=== PATIENT | female | born 1980 | race Caucasian/White ===

== ENCOUNTER 2022-08-26 19:24 | Emergency (ER) | payer SELFPAY ==
[~2022-08-26] VITALS: Ht 170.2 cm; Wt 86.2 kg
[~2022-08-26 19:24] MED LIST: ALBUTEROL S5 MG/1 ML NEB; ALBUTEROL SULF8.5 GM INH; ALBUTEROL2.5 MG/3 M INH; ATROVENT30 ML NAS; BENZONATATE200 MG PO; COLACE100 MG PO; COMBIVENT INH14.7 GM INH; FLONASE2 SPRAY; HYDROCODON-ACE1 EAC3 PO; IBUPROFEN200 MG PO; IPRATROPIU0.2 MG/1 M IH; MEDROL4 MG PO; NORCO 5-325 TA1 EACH PO; OMEPRAZOLE40 MG PO; PERCOCET 5-3251 EACH PO; PREDNISONE20 MG PO; PROAIR HFA8.5 GM INH; PROMETHAZINE-COD5 ML PO; SOMA350 MG PO; SUDAFED 12-HOU120 MG PO; TRAMADOL HCL50 MG PO; WELLBUTRIN SR100 MG PO; WELLBUTRIN SR150 MG PO
[2022-08-26] MEDS ORDERED: ULTRAM50 MG PO (20:25)
== END 2022-08-26 20:48 | disposition home or self-care (01) ==
LOC: ED 19:24
DX: H20.9 Unspecified iridocyclitis (principal); F17.200 Nicotine dependence, unspecified, uncomplicated; Z91.030 Bee allergy status; Z88.0 Allergy status to penicillin; Z88.1 Allergy status to other antibiotic agents
CPT/HCPCS: 99283; A9270

== ENCOUNTER 2022-10-05 13:28 | Emergency (ER) | payer OTHER ==
[~2022-10-05] VITALS: Ht 172.7 cm; Wt 90.7 kg
[~2022-10-05 13:28] MED LIST changes: +ULTRAM50 MG PO
--- OUTSIDE RECORDS SUMMARY | 2022-10-05 13:30 | XMS ---
PreManage Notification: ROSAS KAY Security Hand Patcher Events No recent Security Events currently on file CRITERIA MET - [facility] - 2 Visits in 30 Days CARE PROVIDERS ESTELA BROWNING [facility] Medicine: Geriatric Medicine Current PHONE: Unknown Mathew has no Care Guidelines for this patient. E.[facility]revor VIS[facility] COUNT (12 MO.) [facility] [address] TOTAL 4 NOTE: Visits indicate total known visits. ED/UCC VISIT TRACKING (12 MO.) 10/05/2022 13:29 [facility] [place] TYPE: Emergency COMPLAINT: - SOB, COUGH, CONGESTION, FLU SYMPTOMS 09/30/2022 19:47 [facility] Evelia XIONG TYPE: Emergency DIAGNOSES: - covid+ SOB 08/26/2022 19:24 JOE [facility] [place] TYPE: Emergency COMPLAINT: - EYE PROBLEM DIAGNOSES: - Allergy status to penicillin - Bee allergy status - Unspecified iridocyclitis - Nicotine dependence, unspecified, uncomplicated - Allergy status to other antibiotic agents 12/25/2021 12:19 Jolene BERMUDEZ [place] TYPE: Emergency DIAGNOSES: - Headache - Migraine, unspecified, not intractable, without status migrainosus - Headache (Adult - Recurrent Or Known Dx Migraines) INPATIENT VISIT TRACKING (12 MO.) No inpatient visits to display in this time frame [email or web address]
[2022-10-05] MEDS ORDERED: BUPROPION HCL150 M2 PO (13:56)
[2022-10-05] MEDS ORDERED: FLUOXETINE HCL40 MG PO (13:56)
[2022-10-05] MEDS ORDERED: VENTOLIN HFA18 GM INH (13:57)
[2022-10-05] MEDS ORDERED: PREDNISONE20 MG PO (19:05)
[2022-10-05] MEDS ORDERED: ALBUTEROL2.5 MG/3 M INH (19:05)
== END 2022-10-05 19:21 | disposition home or self-care (01) ==
LOC: ED 13:28
DX: J44.1 Chronic obstructive pulmonary disease with (acute) exacerbation (principal); F17.200 Nicotine dependence, unspecified, uncomplicated; Z91.030 Bee allergy status; Z88.0 Allergy status to penicillin; Z88.1 Allergy status to other antibiotic agents; Z79.899 Other long term (current) drug therapy
CPT/HCPCS: 36415; 71045; 80053; 85025; 85379; 94640; 94644; 96374; 99285-25; J2930

== ENCOUNTER 2023-08-14 13:45 | Emergency (ER) | payer OTHER ==
[~2023-08-14] VITALS: Ht 172.7 cm; Wt 94.8 kg
[~2023-08-14 13:45] MED LIST changes: +BUPROPION HCL150 M2 PO; +FLUOXETINE HCL40 MG PO; +VENTOLIN HFA18 GM INH
[2023-08-14] MEDS ORDERED: HYDROCODON-ACE1 EA10 PO (15:29)
[2023-08-14 15:39] VITALS: BP 130/80
== END 2023-08-14 15:40 | disposition home or self-care (01) ==
LOC: ED 13:45
DX: S92.511G Displaced fracture of proximal phalanx of right lesser toe(s), subsequent encounter for fracture with delayed healing (principal); J45.909 Unspecified asthma, uncomplicated; F17.200 Nicotine dependence, unspecified, uncomplicated; W20.8XXD Other cause of strike by thrown, projected or falling object, subsequent encounter; Z91.030 Bee allergy status; Z88.0 Allergy status to penicillin; Z88.1 Allergy status to other antibiotic agents; Z79.51 Long term (current) use of inhaled steroids; Z79.899 Other long term (current) drug therapy
CPT/HCPCS: 73700

== ENCOUNTER 2024-07-14 18:01 | Emergency (ER) | payer SELFPAY ==
[~2024-07-14] VITALS: Ht 172.7 cm; Wt 96.4 kg
[~2024-07-14 18:01] MED LIST changes: +HYDROCODON-ACE1 EA10 PO
[2024-07-14 19:24] LABS: INFLUENZA B NAA NEGATIVE (NEGATIVE); RESPIRATORY SYNCYTIAL VIR NAA NEGATIVE (NEGATIVE)
[2024-07-14] MEDS ORDERED: ALBUTEROL SULFATE 8 GM HOME.PACK INH ONE (19:45)
[2024-07-14] MEDS ORDERED: INHALER, ASSIST DEVICES 1 EACH SPACER MISC ONE (19:45)
[2024-07-14] MEDS ORDERED: ALBUTEROL/IPRATROPIUM 3 ML NEB INH ONE (19:45)
[2024-07-14] MEDS ORDERED: METHYLPREDNISOLO4 M1 PO (20:20)
[2024-07-14 20:35] VITALS: BP 131/82
== END 2024-07-14 20:35 | disposition home or self-care (01) ==
LOC: ED 18:01
PROVIDERS: Emergency Medicine
DX: J06.9 Acute upper respiratory infection, unspecified (principal); F17.200 Nicotine dependence, unspecified, uncomplicated; Z88.0 Allergy status to penicillin; Z88.1 Allergy status to other antibiotic agents; Z91.030 Bee allergy status; Z79.899 Other long term (current) drug therapy; Z11.52 Encounter for screening for COVID-19
CPT/HCPCS: 71045; 87502; 94640; 94664; 99284-25; U0002